=== PATIENT | male | born 1990 | race Caucasian/White ===

== ENCOUNTER 2022-06-12 08:12 | Outpatient (CLI) | payer OTHER, SELFPAY ==
[2022-06-12 13:43] LABS: Basophils Absolute Auto 0.02 K/uL (0.00-0.30); Basophils Percent Auto 0.4 % (0.0-3.0); Eosinophils Absolute Auto 0.18 K/uL (0.00-0.50); Eosinophils Percent Auto 3.4 % (0.0-7.0); Hematocrit 34.4 % (37.0-53.0); Hemoglobin* 10.2 gm/dL (13.5-17.5); Immature Granulocytes Abs Auto 0.01 K/uL (0.00-0.30); Immature Granulocytes Pct Auto 0.2 %; Lymphocytes Absolute Auto 1.51 K/uL (0.90-2.90); Lymphocytes Percent Auto 28.8 % (20-44); Mean Corpuscular HGB Conc 30 gm/dL (32-36); Mean Corpuscular Hemoglobin 21 pg (26-34); Mean Corpuscular Volume 70 fL (80-100); Monocytes Percent Auto 8.2 % (0.0-11.0); Partial Thromboplastin Time* 33 Seconds (23-33); Platelet Count* 163 K/uL (140-440); RDW Coefficient of Variation % 14.7 % (11.5-15.5); Red Blood Count 4.91 m/uL (4.30-5.90); White Blood Count* 5.25 K/uL (4.50-11.00)
[2022-06-12 14:02] LABS: Iron* 19 ug/dL (49-181)
[2022-06-12 14:12] LABS: Percent Iron Saturation 4 % (20-50); Total Iron Binding Capacity 448 ug/dL (261-462)
[2022-06-12 14:27] LABS: Slide Review Reflex Yes
[2022-06-12 14:28] LABS: Slide Review Acceptable Review (Acceptable)
== END 2022-06-12 08:13 | disposition home or self-care (01) ==
PROVIDERS: PCP Nurse Practitioner Family; Visit Provider Nurse Practitioner Family
DX: Z00.00 Encounter for general adult medical examination without abnormal findings (principal); Z13.0 Encounter for screening for diseases of the blood and blood-forming organs and certain disorders involving the immune mechanism; R58 Hemorrhage, not elsewhere classified
CPT/HCPCS: 83540; 83550; 85025; 85730

== ENCOUNTER 2022-07-09 09:58 | Outpatient (CLI) | payer OTHER, SELFPAY | END 2022-07-09 09:59 | disposition home or self-care (01) | PROVIDERS: PCP Nurse Practitioner Family; Visit Provider Otolaryngology | DX: Z00.00 Encounter for general adult medical examination without abnormal findings (principal); R04.0 Epistaxis; D50.9 Iron deficiency anemia, unspecified | CPT/HCPCS: 85610; 85730 ==

== ENCOUNTER 2022-07-16 13:53 | Outpatient (CLI) | payer OTHER, SELFPAY ==
--- NOTE | 2022-07-16 14:00 | CRLHL7_ITS ---
For Patients: As a result of the Century Cures Act, medical imaging exams and procedure reports are released immediately into your electronic medical record. You may view this report before your referring provider. If you have questions, please contact your health care provider. INDICATION: Epistaxis. TECHNIQUE: CTA head with contrast bolus tracking and 3D MIP reconstruction. FINDINGS: There is normal opacification of the intracranial vasculature. There is no large vessel occlusion. No aneurysm is identified. IMPRESSION: Unremarkable head CTA. Please note that all CT scans at this facility use dose modulation, iterative reconstruction, and/or weight-based dosing when appropriate to reduce radiation dose to as low as reasonably achievable. Dictated by Mauro Barrera MD @ 07/16/2022 4:42:46 PM (Electronically Signed)
--- NOTE | 2022-07-16 14:30 | CRLHL7_ITS ---
For Patients: As a result of the Century Cures Act, medical imaging exams and procedure reports are released immediately into your electronic medical record. You may view this report before your referring provider. If you have questions, please contact your health care provider. INDICATION: Epistaxis. TECHNIQUE: CTA neck with contrast bolus tracking and 3D MIP reconstruction. FINDINGS: There is no significant carotid or vertebral artery stenosis or dissection. The soft tissues of the neck are within normal limits. The cervical spine is in normal alignment. IMPRESSION: Unremarkable neck CTA. Please note that all CT scans at this facility use dose modulation, iterative reconstruction, and/or weight-based dosing when appropriate to reduce radiation dose to as low as reasonably achievable. Dictated by Mauro Barrera MD @ 07/16/2022 4:44:53 PM (Electronically Signed)
== END 2022-07-16 13:54 | disposition home or self-care (01) ==
LOC: CT 13:53
PROVIDERS: PCP Nurse Practitioner Family; Visit Provider Otolaryngology
DX: R04.0 Epistaxis (principal)
CPT/HCPCS: 70496; 70498; Q9967

== ENCOUNTER 2022-10-30 13:00 | Outpatient (RCR) | payer OTHER, SELFPAY ==
[2022-08-26 11:08] LABS: Basophils Absolute Auto 0.01 K/uL (0.00-0.30); Basophils Percent Auto 0.2 % (0.0-3.0); Eosinophils Absolute Auto 0.21 K/uL (0.00-0.50); Eosinophils Percent Auto 3.8 % (0.0-7.0); Hematocrit 36.3 % (37.0-53.0); Hemoglobin* 11.3 gm/dL (13.5-17.5); Immature Granulocytes Abs Auto 0.01 K/uL (0.00-0.30); Immature Granulocytes Pct Auto 0.2 %; Lymphocytes Absolute Auto 1.82 K/uL (0.90-2.90); Lymphocytes Percent Auto 33.2 % (20-44); Mean Corpuscular HGB Conc 31 gm/dL (32-36); Mean Corpuscular Hemoglobin 21 pg (26-34); Mean Corpuscular Volume 68 fL (80-100); Monocytes Percent Auto 9.5 % (0.0-11.0); Neutrophils Absolute Auto 2.91 K/uL (1.7-7.0); Neutrophils Percent Auto 53.1 % (42.0-72.0); Platelet Count* 195 K/uL (140-440); RDW Coefficient of Variation % 17.9 % (11.5-15.5); Red Blood Count 5.34 m/uL (4.30-5.90); White Blood Count* 5.48 K/uL (4.50-11.00)
[2022-08-26 11:39] LABS: Slide Review Reflex No
[2022-08-26 11:43] LABS: Iron* 26 ug/dL (49-181)
[2022-08-26 11:52] LABS: Percent Iron Saturation 6 % (20-50); Total Iron Binding Capacity 418 ug/dL (261-462)
[2022-08-26 12:10] LABS: INR 1.04 (0.91-1.10); Prothrombin Time 14.2 Seconds
[2022-08-26 12:11] LABS: Partial Thromboplastin Time* 34 Seconds (23-33)
[2022-08-26 12:16] LABS: Ferritin* 5.3 ng/mL (17.9-464.0)
[2022-08-29 04:36] LABS: von WillebrandFactorAntigen 29 % (52-214); vonWillebrandFactorActivityRCF 19 % (51-215)
--- NOTE | 2022-08-29 13:29 | URNOTE ---
Request received for authorization for Ferumoxytol (Feraheme) ([id number]). Prior authorization is not required [facility] per Rep Jessica Ref#[id number].
[2022-09-10 13:51] VITALS: BP 142/84; PULSE 75; RESP 16; TEMP 36.3; O2SAT 98
[2022-09-10] MEDS: ferumoxytoL 510 MG in 0.9 % SODIUM CHLORIDE 250 ml 250 ML 1080 MG IVPB (14:14)
[2022-09-16 14:10] VITALS: BP 133/77; PULSE 86; RESP 16; TEMP 35.7; O2SAT 96
[2022-09-16] MEDS: ferumoxytoL 510 MG in 0.9 % SODIUM CHLORIDE 250 ml 250 ML 1068 MG IVPB (14:10)
--- NOTE | 2022-09-30 11:57 | ONC.NURNOTE ---
Addendum entered by Adrienne Fischer RN 10/07/22 10:55: New Rx for tranexamic acid submitted by Dr Humberto Murphy drug was contacted and so was Levi Original Note: [place] required for [facility] dept [phone] was contacted feature writer informed that Tranexamic Acid is required to try prior to [facility] or may submit request by phone with information as to why patient is not a candidate for this medication feature writer to review with Dr Paul
[2022-10-09 11:53] LABS: Basophils Absolute Auto 0.04 K/uL (0.00-0.30); Basophils Percent Auto 0.6 % (0.0-3.0); Eosinophils Absolute Auto 0.17 K/uL (0.00-0.50); Eosinophils Percent Auto 2.6 % (0.0-7.0); Hemoglobin* 14.1 gm/dL (13.5-17.5); Immature Granulocytes Abs Auto 0.01 K/uL (0.00-0.30); Immature Granulocytes Pct Auto 0.2 %; Lymphocytes Absolute Auto 1.77 K/uL (0.90-2.90); Lymphocytes Percent Auto 27.4 % (20-44); Mean Corpuscular HGB Conc 33 gm/dL (32-36); Mean Corpuscular Hemoglobin 25 pg (26-34); Mean Corpuscular Volume 75 fL (80-100); Neutrophils Absolute Auto 4.01 K/uL (1.7-7.0); Neutrophils Percent Auto 62.2 % (42.0-72.0); Platelet Count* 176 K/uL (140-440); RDW Coefficient of Variation % 20.3 % (11.5-15.5); Red Blood Count 5.71 m/uL (4.30-5.90); White Blood Count* 6.45 K/uL (4.50-11.00)
[2022-10-09 11:57] LABS: Slide Review Reflex No
[2022-10-09 14:41] LABS: Ferritin* 18.8 ng/mL (17.9-464.0)
--- NOTE | 2022-10-10 12:37 | URNOTE ---
Request received for authorization for Ferumoxytol (Feraheme) ([id number]).?Prior authorization is not required?by [facility] per Rep Summer B. Ref#[id number].
[2022-10-24 08:36] VITALS: BP 130/84; PULSE 66; RESP 18; TEMP 36.6; O2SAT 99
[2022-10-24] MEDS: ferumoxytoL 510 MG in 0.9 % SODIUM CHLORIDE 250 ml 250 ML 1068 MG IVPB (09:08)
[2022-10-30] MEDS: ferumoxytoL 510 MG in 0.9 % SODIUM CHLORIDE 250 ml 250 ML 1068 MG IVPB (13:23)
[2022-10-30 13:45] VITALS: BP 131/82; PULSE 64; RESP 16; TEMP 36.8; O2SAT 97
--- NOTE | 2023-02-06 10:25 | ONC.NURNOTE ---
Phone message left on voicemail to set up follow up with Dr Paul and lab
== END 2023-02-22 23:59 | disposition home or self-care (01) ==
LOC: CCIC 13:00
PROVIDERS: PCP Nurse Practitioner Family; Referring Provider Nurse Practitioner Family; Visit Provider Internal Medicine Hematology & Oncology
DX: D68.00 Von Willebrand disease, unspecified (principal)
CPT/HCPCS: 36415; 82728; 83540; 83550; 85025; 85240; 85245; 85246; 85610; 85730; 96365; 96374; 99204; 99205; 99212; 99214; 99215; J7050; Q0138

== ENCOUNTER 2023-12-24 17:47 | Emergency (ER) | payer OTHER, SELFPAY ==
[2023-12-24 18:22] VITALS: BP 145/92; PULSE 71; RESP 16; TEMP 36.9; O2SAT 98; BMI 26.5
--- NOTE | 2023-12-24 18:42 | CRLHL7_ITS ---
For Patients: As a result of the Century Cures Act, medical imaging exams and procedure reports are released immediately into your electronic medical record. You may view this report before your referring provider. If you have questions, please contact your health care provider. INDICATION: Right lower quadrant pain.. TECHNIQUE: CT abdomen and pelvis acquired with 91 cc of Isovue 370 IV contrast. COMPARISON: None. FINDINGS: Lower chest: Unremarkable. Liver: Unremarkable. Normal in size and attenuation. No suspicious masses. Gallbladder and bile ducts: Unremarkable. No stones or inflammation. No biliary dilatation. Pancreas: Unremarkable. No mass or inflammation. Spleen: Unremarkable. Normal in size. No masses. Adrenal glands: Unremarkable. No nodules. Kidneys: Unremarkable. No suspicious masses, stones, or hydronephrosis. GI tract: Unremarkable. Normal in caliber. No sign of mass or inflammation. Normal appendix. Vasculature: Abdominal aorta is normal in caliber. Mesenteric arteries are patent. Lymph nodes: No lymphadenopathy. Peritoneum/Abdominal Wall: Unremarkable. No free air or significant free fluid. Pelvis: Unremarkable. Bones: Unremarkable for age. IMPRESSION: Unremarkable CT of the abdomen and pelvis. No acute findings. Normal appendix. No urolith or evidence of obstructive uropathy. Please note that all CT scans at this facility use dose modulation, iterative reconstruction, and/or weight-based dosing when appropriate to reduce radiation dose to as low as reasonably achievable. Dictated by Justice Dennison MD @ 12/24/2023 7:49:00 PM (Electronically Signed)
--- OUTSIDE RECORDS SUMMARY | 2023-12-24 19:06 | XMS_ITS ---
Author Organization [facility] Address [address] [place] [address] Care Team Providers Care Acoustical Logging Engineer Name Role Phone Unavailable Unavailable Unavailable Surgery Details Not on file Complications Check Surgery Details section. Procedure Estimated Blood Loss Check Surgery Details section. Procedure Findings Check Surgery Details section. Procedure Specimens Taken Check Surgery Details section.
--- OUTSIDE RECORDS SUMMARY | 2023-12-24 19:06 | XMS_ITS | Clinical Summary ---
[facility] Organization [facility] Address [address] [address] Care Team Providers Care Superintendent Container Terminal Name Role Phone Found, No Pcp MD Primary Care Provider Unavailab le Source Comments You are receiving this document as you are listed as the primary care provider,follow-up provider, or the patient has been referred to you for consultation.This is in compliance with the Medicare andOhio[facility] Hospitalcaid EHR Incentive Program,which states Providers who transition their patient to another setting of careor provider of care or refers their patient to another provider of care shouldprovide summary care record for each transition of care or referral. [facility] Allerg[facility] No known active allergies Medications Medication Sig Dispensed Refills Start Date End Date Status ondansetron (ZOFRAN-ODT) 4 MG disintegrating tablet Take 1 Tablet by mouth every 8 hours as needed for Nausea. 5 Tablet 04/03/2021 Active HYDROcodone-acetaminoph en (NORCO) 5-325 MG tablet Take 1 Tablet by mouth every 6 hours as needed. 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 Complex tear of medial menis cus of left knee as current injury 02/09/2021 History of arthroscopy of left knee 01/20/2021 Chronic pain of left knee 01/20/2021 Family History Medical History Relation Name Comments Heart Disease Father Diabetes Brother Cancer Maternal Aunt Cancer Maternal Uncle Diabetes Paternal Grandmother Anesthesia Reaction Negative Family History Broken Bones Negative Family History Clotting Disorder Negative Family History Osteoporosis Negative Family History Rheumatologic Disease Negative Family History Relation Name Status Comments Father Brother Maternal Aunt Maternal Uncle Paternal Grandmother Social History Tobacco Use Types Packs/Day Years Used Date Smoking Tobacco: Never Smokeless Tobacco: Never Alcohol Use Standard Drinks/Week Comments Yes 0 (1 standard drink = 0.6 oz pur e alcohol) occasionl Sex and Gender Information Value Date Recorded Sex Assigned at Male 01/16/2021 7:19 PM CDT Gender Identity Male 01/16/2021 7:19 PM CDT Sexual Orientation Not on file Last Filed Vital Signs Vital Sign Reading Time Taken Comments Blood Pressure 124/80 04/03/2021 1:45 PM SALESPERSON ART OBJECTS Pulse 85 04/03/2021 1:45 PM SALESPERSON ART OBJECTS Temperature 36.8 ??C (98.3 ??F) 04/03/2021 1:45 PM CS T Respiratory Rate 17 04/03/2021 1:45 PM SALESPERSON ART OBJECTS Oxygen Saturation 98% 04/03/2021 1:45 PM SALESPERSON ART OBJECTS Inhaled Oxygen Concentration - - Weight 86.2 kg (190 lb) 04/03/2021 9:41 AM SALESPERSON ART OBJECTS Height 175.3 cm (5' 9) 04/03/2021 9:41 AM SALESPERSON ART OBJECTS Body Mass Index 28.06 04/03/2021 9:41 AM SALESPERSON ART OBJECTS Plan of Treatment Health Maintenance Due Date Last Done Comments Hep C Screening (Preventive Services) 1988 HIV Screening (Preventive Services) 2004 Adult Preventive Visit 2006 HepB (1) 10/24/2007 COVID-19 Vaccine ( season) 2023 DTaP/Tdap/Td (3 - Tdap) 02/10/2023 02/10/2013, 02/20 Cholesterol 10/24/2023 Influenza (#1) 2024 02/20/2021, 1111/2019, 02/21/2019, Additional history exists Zoster/Shingles (1 of 2) 2038 Hib Aged Out 07/19/2001 No longer eligi ble based on patient's age to complete this topic HPV Vaccine Aged Out No longer eligi ble based on patient's age to complete this topic HepA Aged Out No longer eligi ble based on patient's age to complete this topic IPV (Polio) Aged Out No longer eligi ble based on patient's age to complete this topic MCV4 Aged Out No longer eligi ble based on patient's age to complete this topic Pneumococcal Aged Out No longer eligi ble based on patient's age to complete this topic Care Teams Superintendent Container Terminal Relationship Specialty Start Date End Date Found, No Pcp[address] [place] [address] PCP - General 01/29/22
--- OUTSIDE RECORDS SUMMARY | 2023-12-24 19:06 | XMS_ITS | Encounter Summary ---
Author Organization [facility] Address [address] [address] Phone Care Team Providers Care Service Center Representative Name Role Phone Unavailable Primary Care Provider Unavailabl e Reason for Visit * Reason Comments Puncture Wound Encounter Details Date Type Department Care Team (Late st Contact Info) Description 11/05/2023 3:45 PM CDT - 11/05/2023 4:09 PM CDT Emergency [facility] Emergency Department [address] [place] [address] [id number] Johnathon Reyes MD [address] [place] [id number] Cellulitis of right lower extremity (Primary Dx) Discharge Disposition: Home and/or Self Care Social History Tobacco Use Types Packs/Day Years Used Date Smoking Tobacco: Never Assessed EH IP Custom IPV Answer Date Recorded Do you feel UNSAFE in any of your personal relationships with your family members or any other acquaintances? Deferred 2023 Sex and Gender Information Value Date Recorded Sex Assigned at Not on file Gender Identity Not on file Sexual Orientation Not on file Job Start Date Occupation Industry Not on file Not on file Not on file documented as of this encounter Last Filed Vital Signs Vital Sign Reading Time Taken Comments Blood Pressure 143/93 11/05/2023 3:40 PM CDT Pulse 81 11/05/2023 3:40 PM CDT Temperature 36.7 ??C (98 ??F) 11/05/2023 3:40 PM CDT Respiratory Rate 18 11/05/2023 3:40 PM CDT Oxygen Saturation 97% 11/05/2023 3:40 PM CDT Inhaled Oxygen Concentration - - Weight 88.5 kg (195 lb) 11/05/2023 3:40 PM CDT Height 177.8 cm (5' 10) 11/05/2023 3:40 PM CDT Body Mass Index 27.98 11/05/2023 3:40 PM CDT documented in this encounter Functional Status Functional Status Response Date of Assess ment Patient's Vision Adequate to Safely Complete Daily Activities Yes 11/05/2023 Patient's Memory Adequate to Safely Complete Daily Activities Yes 11/05/2023 Cognitive Status Response Date of Assessm ent Patient's Judgment Adequate to Safely Complete Daily Activities Yes 11/05/2023 documented as of this encounter Discharge Instructions * Discharge Instructions* Johnathon Reyes MD - 11/05/2023 4:04 PM CDT Clindamycin as directed. Tylenol and ibuprofen as needed for comfort. Follow-up closely if your symptoms are worsening such as fevers, chills or significant worsening redness. documented in this encounter Medications at Time of Discharge Medication Sig Dispensed Refills Start Date End Date clindamycin (Cleocin) 300 MG capsuleIndications:Inf ection Take 1 Capsule by mouth three times a day for 10 days. Indications: Infection 40 Capsule 11/05/2023 11/15/2023 documented as of this encounter Ordered Prescriptions Prescription Sig Dispensed Refills Start Date End Da te clindamycin (Cleocin) 300 MG capsuleIndications:Infe ction Take 1 Capsule by mouth three times a day for 10 days. Indications: Infection 40 Capsule 11/05/2023 11/15/2023 documented in this encounter Discharge Disposition Disposition Code Departure Means Destination Home and/or Self Penitentiary documented in this encounter ED Notes * Johnathon Reyes MD - 11/05/2023 4:06 PM CDT Patient: Levi Lennon Means of Arrival: Car Chief Complaint: Puncture Wound History of Present Illness: HPI The patient is a 33-year-old male who presents to the emergency department today with a chief complaint of a puncture wound. The patient reports that over a week ago he believes that he was puncturedby a nail over his right thigh. He is now started to notice some increasing redness and swelling. He has not had any fevers, chills. He is not having any other rashes or skin discolorations. He is otherwise typically in good health. Review of Systems Please see HPI No Known Allergies Prior to Admission Medication List Med List Status: ED Triage Only Set By: Brandon Bruner RN at 11/05/2023 3:40 PM No Medications Reported Past Medical History: None Social History: Exam: Initial Vitals Most Recent Vitals Temp: 98 ??F (36.7 ??C) (11/05/23 1540) Temp: 98 ??F (36.7 ??C) (11/05/23 1540) Pulse: 81 (11/05/23 1540) Pulse: 81 (11/05/23 1540) Resp: 18 (11/05/23 1540) Resp: 18 (11/05/23 1540) BP: (!) 143/93 (11/05/23 1540) BP: (!) 143/93 (11/05/23 1540) SpO2: 97 % (11/05/23 1540) SpO2: 97 % (11/05/23 1540) Weight: 88.5 kg (195 lb) (11/05/23 1540) Physical Exam: Physical Exam HENT: Head: Normocephalic. Skin: Comments: Inspection of the patient's right thigh reveals no reveals an area of erythema approximately 3 cm in diameter with central eschar. Neurological: General: No focal deficit present. Mental Status: He is alert and oriented to person, place, and time. Psychiatric: Mood and Affect: Mood normal. Emergency Department Course: The patient is a 33-year-old male who presents to the emergency department today with a chief complaint of redness of his right lower extremity. The patient's exam is consistent with cellulitis. I have recommended a course of clindamycin. I will have him complete a 10-day course, 300 mg 3 times daily. Follow-up if not improving following thisand sooner if symptoms worsening at any point. He was comfortable with the plan. Medications - No data to display Procedures: Procedures Medical Decision Making Assessment: Cellulitis of right lower extremity (Primary) Plan: Discharge Discharge Prescriptions Medication Sig Dispense Start Date End Date Auth. Provider clindamycin (Cleocin) 300 MG capsule Take 1 Capsule by mouth three times a day for 10 days. Indications: Infection 40 Capsule 11/05/2023 11/15/2023 Johnathon Reyes MD Disposition: ED Disposition ED Disposition Discharge Condition Stable Comment [facility] thanks you for allowing us to assist you with your healthcare needs. This document contains patient education materials and information regarding your injury/illness. *If you need copies of your x-rays for a f ollow up appointment please call [phone] to arrangefor supervisor picking crew. If you had an IV in place during your stay, please continue to monitor the site for the next 48 hours. Report any redness, swelling, drainage, or fever to your primary care phys ician. Discharge Instructions Clindamycin as directed. Tylenol and ibuprofen as needed for comfort. Follow-up closely if your symptoms are worsening such as fevers, chills or significant worsening redness. ExitCare Instructions None Johnathon Reyes MD 11/05/23 [id number] * Chelle Cano RN - 11/05/2023 3:49 PM CDT Pt presents to ER today for increased redness & pain around a puncture wound he got last week pt thinks from a nail at work. * Brandon Bruner RN - 11/05/2023 3:39 PM CDT Pt presents w/ concerning puncture wound to RLE, maybe from a nail at work. documented in this encounter Plan of Treatment Not on file documented as of this encounter Visit Diagnoses Diagnosis Cellulitis of right lower extremity- Primary Cellulitis and abscess of leg, except foot documented in this encounter
--- OUTSIDE RECORDS SUMMARY | 2023-12-24 19:06 | XMS_ITS | Clinical Summary ---
Author Organization [facility] [employer] [facility] Address [address] [address] Phone Care Team Providers Care Sorter Pricer Name Role Phone Unavailable Primary Care Provider Unavailabl e Allergies No known active allergies Medications No known medications Encounters Date Type Department Care Team Description 11/05/2023 3:45 PM CDT - 11/05/2023 4:09 PM CDT Emergency [facility] Emergency Department [address] [place] [address] Johnathon Reyes MD Cellulitis of right lower extremity (Primary Dx) Discharge Disposition: Home and/or Self Care 11/05/2023 Travel from Last 3 Months Social History Tobacco Use Types Packs/Day Years [...] file Not on file Not on file Last Filed Vital Signs [...] Mass Index 27.98 11/05/2023 3:40 PM CDT Plan of Treatment Not on file
--- OUTSIDE RECORDS SUMMARY | 2023-12-24 19:06 | XMS_ITS | Clinical Summary ---
Author Organization [facility] Address [address] [place] [address] Care Team Providers Care Personal Financial Representative Name Role Phone Elsewhere, Pcp Primary Care Provider Unavailabl e Source Comments Patient records contain information from all sites at [facility]. For routine questions regarding patient records, call [phone] during business hours, M-F 8:00 AM - 5:00 PM Central Time. Record requests for emergency care only can be directed to [phone] at any time.[facility] Allergies No known active allergies Medications Medication Sig Dispensed Refills Start Date End Date Status desmopressin acetate 1.5 mg/mL (0.15%) nasal spray Administer 0.1 mL (1 spray total) into each nostril as needed (To be used in case of bleeding). Second dose of DDAVP should NOT be given within 48 hours of the initial treatment without consulting a physician. Reduce your intake of fluids after taking this medication. Drink no more than six, 8-ounce glasses in the 24 hours after taking desmopressin. 1 mL 3 12/12/2022 Active tranexamic acid 100 mg/mL (10 %) nasal spray Administer 1-2 sprays into each nostril 3 (three) times a day as needed (nose bleed). 20 mL 1 01/12/2023 Active tranexamic acid (CYKLOKAPRON) 1,000 mg/10 mL (100 mg/mL) injection Administer 1-2 sprays into each nostril 3 (three) times a day as needed for nose bleed 20 mL 1 01/12/2023 Active tranexamic acid nasal kit Use as directed. 1 kit = 1-Monoject 12 mL canula, 1-30 mL bottle and 1 nasal spray tip 2 kit 1 01/12/2023 Active tranexamic acid (LYSTEDA) 650 mg tabletIndications:Vo n Willebrand Disease Unspecified (HCC) Take 2 tablets (1,300 mg total) by mouth 3 (three) times a day. 84 tablet 1 02/04/2023 Active Hospital, Clinic, or Other Facility Administered Medication Ordered Dose Route Frequency Start Date End Date Status tranexamic acid 100 mg/mL nasal spray 1 spray (CYKLOKAPRON)Indications:Blee ding Disorder (HCC),Epistaxis 1 spray nasal Once 01/12/2023 Active Active Problems Patient Care Coordination No te Formatting of this note migh t be different from the original. PATIENT SUMMARY: Type I von Willebrand disease CHRONIC DISEASE MANAGEMENT: Please contact the [facility] ([phone]) prior to any invasive procedure. ACTION PLAN: Please refer to Bleeding Disorder Action Plan for management of bleeding concerns. Problem Noted Date Diagnosed Date Epistaxis 01/12/2023 Bleeding Disorder 11/17/2022 Social History Tobacco Use Types Packs/Day Years Used Date Smoking Tobacco: Never Passive Smoke Exposure: Never Smokeless Tobacco: Never Tobacco Cessation:Counseling Given: No Alcohol Use Standard Drinks/Week Comments Yes 4 (1 standard drink = 0.6 oz pur e alcohol) Humiliation, Afraid, Rape, and Kick questionnair e Answer Date Recorded Within the last year, have y ou been afraid of your partner or ex-partner? No 10/30/2022 Within the last year, have y ou been humiliated or emotionally abused in other ways by your partner or ex-partner? No Within the last year, have y ou been kicked, hit, slapped, or otherwise physically hurt by your partner or ex-partner? No 10/30/2022 Within the last year, have y ou been raped or forced to have any kind of sexual activity by your partner or ex-partner? No 10/30/2022 Overall Financial Resource Strain (CARDIA) Answe r Date Recorded How hard is it for you to pa y for the very basics like food, housing, medical care, and heating? Not very hard 10/30/2022 Exercise Vital Sign Answer Date Recorde d On average, how many days pe r week do you engage in moderate to strenuous exercise (like a brisk walk)? 7 days 10/30/2022 On average, how many minutes do you engage in exercise at this level? 150+ min 10/30/2022 Hunger Vital Sign Answer Date Recorded Within the past 12 months, y ou worried that your food would run out before you got the money to buy more. Never true 10/31/19 23 Within the past 12 months, t he food you bought just didn't last and you didn't have money to get more. Never true 10/30/2022 PRAPARE - Transportation Answer Date Re corded In the past 12 months, has l ack of transportation kept you from medical appointments or from getting medications? No 10/03 In the past 12 months, has l ack of transportation kept you from meetings, work, or from getting things needed for daily living? No 10/30/2022 Nutrition Answer Date Recorded Nutrition: EVOO Fat Source Unknown 10/30 On average, how many serving s of fruits and vegetables do you eat per day (serving size is equal to 1 cup or approximately the size of a tennis ball)? 0-2 10/30/2022 Dental Answer Date Recorded Dental: Regular Dentist No 10/31/19 Employment Answer Date Recorded Employment status Employed and actively working without restrictions 10/30/2022 Housing Stability Answer Date Recorded What is your living situation today? I have a [facility] place to live 10/30/2022 Sex and Gender Information Value Date Recorded Sex Assigned at Male 10/30/2022 1:40 PM CDT Gender Identity Male 10/30/2022 1:40 PM CDT Sexual Orientation Straight 10/30/2022 1: 40 PM CDT Last Filed Vital Signs Vital Sign Reading Time Taken Comments Blood Pressure 132/81 02/28/2023 4:31 PM CDT Pulse 74 02/28/2023 4:31 PM CDT Temperature 36.6 ??C (97.9 ??F) 02/28/2023 4:31 PM CD T Respiratory Rate 18 02/28/2023 4:31 PM CDT Oxygen Saturation 97% 02/28/2023 3:00 PM CDT Inhaled Oxygen Concentration - - Weight 88.6 kg (195 lb 5.2 oz) 02/28/2023 11:54 AM CDT Height 177.8 cm (5' 10) 02/24/2023 10:02 AM CDT Body Mass Index 28.03 02/24/2023 10:02 AM CDT Plan of Treatment Health Maintenance Due Date Last Done Comments HIV Screening 1988 Hepatitis C Screening 1988 Lipid (Cholesterol) Screening 1988 COVID-19 Vaccine ( season) 2023 Depression Screening (Annual PHQ-2) 05/04/2023 Influenza Vaccine (#1) 2024 , 03/15/2022, 02/20/2021, Additional history exists DTaP,Tdap,and Td Vaccines (4 - Td or Tdap) 03/31/2033 03/31/2023, 02/10/2013, 02/20/2003 Hepatitis B Vaccines Completed 05/04/2001, 03/03/2001, 12/08/2000 HPV Vaccines Aged Out No longer eligi ble based on patient's age to complete this topic Pneumococcal vaccine (0-64 years) Aged Out No longer eligible based on patient's age to complete this topic Care Teams Personal Financial Representative Relationship Specialty Start Date End Date Elsewhere, Pcp PCP - General Director Of Media 03/17/20
--- OUTSIDE RECORDS SUMMARY | 2023-12-24 19:06 | XMS_ITS | Encounter Summary ---
Author Organization [facility] Address [address], [place] [address] Care Team Providers Care Composing Machine Operator/Tender Name Role Phone Found, No Pcp Primary Care Provider Unavailab le Encounter Details Date Type Department Care Team (Late st Contact Info) Description 05/29/2023 Notes/Orders [facility] [address] [place] [address] Iggy Rodriguez MD [address] [place] [id number] Social History Tobacco Use Types Packs/Day Years Used Date Smoking Tobacco: Never Smokeless Tobacco: Never Alcohol Use Standard Drinks/Week Comments Yes 0 (1 standard drink = 0.6 oz pur e alcohol) occasionl Sex and Gender Information Value Date Recorded Sex Assigned at Male 01/16/2021 7:19 PM CDT Gender Identity Male 01/16/2021 7:19 PM CDT Sexual Orientation Not on file documented as of this encounter Plan of Treatment Not on file documented as of this encounter Visit Diagnoses Not on filedocumented in this encounter Care Teams Composing Machine Operator/Tender Relationship Specialty Start Date End Date Found, No Pcp, [address] [place] [address] PCP - General 01/29/22 documented as of this encounter
--- OUTSIDE RECORDS SUMMARY | 2023-12-24 19:06 | XMS_ITS | Clinical Summary ---
Author Organization [employer] [facility] Address [place], [place] [address] Care Team Providers Care Antique Jewelry Repairer Name Role Phone Pcp, No Primary Care Provider Unavailabl e None Unavailable Unavailable Allergies No known active allergies Medications No known medications Active Problems No known active problems Social History Tobacco Use Types Packs/Day Years Used Date Smoking Tobacco: Never Smokeless Tobacco: Former Sex and Gender Information Value Date Recorded Sex Assigned at Not on file Gender Identity Not on file Sexual Orientation Not on file Obstetrics History Last Filed Vital Signs Vital Sign Reading Time Taken Comments Blood Pressure 130/84 10/01/2022 12:33 PM CDT Pulse 89 10/01/2022 12:33 PM CDT Temperature 37 ??C (98.6 ??F) 10/01/2022 12:33 PM CDT Respiratory Rate 19 10/01/2022 12:33 PM CDT Oxygen Saturation 97% 10/01/2022 12:33 PM CDT Inhaled Oxygen Concentration - - Weight 90.3 kg (199 lb) 10/01/2022 12:33 PM CDT Height - - Body Mass Index - - Plan of Treatment Health Maintenance Due Date Last Done Comments Tdap 10/24/1999 HIV for age 15-65 10/24/2003 BMI (ht and wt on same day) for age 18+ 2006 Hepatitis C screening for ag e 18-79 2006 Tetanus booster 2008 Depression screening for age 12+ 08/03/2019 08/02/2018, 07/29/2018, 07/29/2018 COVID-19 vaccine series ( season) 2023 Lipids for age 35-44 10/24/2023 Influenza for age 9-49 01/03/2024 Pneumococcal series for age 6-64 Aged Out No longer eligible b ased on patient's age to complete this topic Care Teams Antique Jewelry Repairer Relationship Specialty Start Date End Date Pcp, No . PCP - General 04/28/18 None . 04/28/18
--- OUTSIDE RECORDS SUMMARY | 2023-12-24 19:06 | XMS_ITS | Referral Summary ---
Author Organization [facility] Address [address] [place] [address] Care Team Providers Care Marketing Systems Manager Name Role Phone Elsewhere, Pcp Primary Care Provider Unavailabl e Source Comments Patient records contain information from all sites at [facility]. For routine questions regarding patient records, call [phone] during business hours, M-F 8:00 AM - 5:00 PM Central Time. Record requests for emergency care only can be directed to [phone] at any time.[facility] Allergies No known active allergies Medications Medication [...] disease CHRONIC DISEASE MANAGEMENT: Please contact the [facility] ([phone]) prior to any invasive procedure. ACTION PLAN: [...] your living situation today? I have a [facility] place to live 10/30/2022 Sex and [...] 02/24/2023 10:02 AM CDT Plan of Treatment Not on file Care Teams Marketing Systems Manager Relationship Specialty Start Date End Date Elsewhere, Pcp PCP - General Evp And Chief Operating Officer 03/17/20
--- OUTSIDE RECORDS SUMMARY | 2023-12-24 19:06 | XMS_ITS | Encounter Summary ---
Author Organization [facility] Address [address] [address] Phone Care Team Providers Care Regional Director Of Finance Name Role Phone Unavailable Primary Care Provider Unavailabl e Encounter Details Date Type Department Care Team (Latest Contact Info) Description 11/05/2023 Travel Social History Tobacco Use Types Packs/Day Years [...] on file documented as of this encounter Functional Status Functional Status Response Date of Assess ment Patient's Vision Adequate to Safely Complete Daily Activities Yes 11/05/2023 Patient's Memory Adequate to Safely Complete Daily Activities Yes 11/05/2023 Cognitive Status Response Date of Assessm ent Patient's Judgment Adequate to Safely Complete Daily Activities Yes 11/05/2023 documented as of this encounter Plan of Treatment Not on file documented as of this encounter Visit Diagnoses Not on filedocumented in this encounter
[2023-12-24 19:11] LABS: Basophils Absolute Auto 0.01 K/uL (0.00-0.30); Basophils Percent Auto 0.2 % (0.0-3.0); Eosinophils Absolute Auto 0.29 K/uL (0.00-0.50); Eosinophils Percent Auto 4.5 % (0.0-7.0); Hematocrit 44.1 % (37.0-53.0); Hemoglobin* 15.6 gm/dL (13.5-17.5); Immature Granulocytes Abs Auto 0.01 K/uL (0.00-0.30); Immature Granulocytes Pct Auto 0.2 %; Lymphocytes Absolute Auto 2.37 K/uL (0.90-2.90); Lymphocytes Percent Auto 36.6 % (20-44); Mean Corpuscular HGB Conc 35 gm/dL (32-36); Mean Corpuscular Hemoglobin 30 pg (26-34); Mean Corpuscular Volume 83 fL (80-100); Monocytes Percent Auto 7.9 % (0.0-11.0); Neutrophils Absolute Auto 3.29 K/uL (1.7-7.0); Neutrophils Percent Auto 50.6 % (42.0-72.0); Platelet Count* 140 K/uL (140-440); RDW Coefficient of Variation % 11.6 % (11.5-15.5); Red Blood Count 5.29 m/uL (4.30-5.90); White Blood Count* 6.48 K/uL (4.50-11.00)
[2023-12-24 19:16] LABS: Slide Review Reflex No
[2023-12-24 19:25] LABS: Chloride* 104 mmol/L (96-114)
[2023-12-24 19:26] LABS: Appearance Urine Clear (Clear); Bilirubin Urine Negative (Negative); Color Urine Yellow (Yellow); Glucose Urine Negative (Negative)
[2023-12-24 19:26] LABS: Albumin* 4.4 g/dL (3.3-5.0); Sodium* 139 mmol/L (135-149)
[2023-12-24 19:27] LABS: Bacteria Urine Few; Blood Urine Negative (Negative); Ketones Urine Negative (Negative); Leukocyte Esterase Urine 3+ (Negative); Nitrite Urine Negative (Negative); Protein Urine Negative (Negative); RBC Urine 0-2 (0-2); Urobilinogen Urine 0.2 (0.2-1.0); WBC Urine 0-2 (0-5)
[2023-12-24 19:29] LABS: Alanine Aminotransferase* 39 U/L (4-50); Alkaline Phosphatase* 54 U/L (40-150); Anion Gap 7 mEq/L (7-15); Aspartate Amino Transferase* 27 U/L (12-35); Bilirubin Direct* 0.3 mg/dL (0.0-0.5); Bilirubin Total* 0.9 mg/dL (0.1-1.5); Blood Urea Nitrogen* 18 mg/dL (5-24); Calcium* 9.2 mg/dL (8.4-10.6); Carbon Dioxide* 28 mmol/L (20-32); Est. Creatinine Clearance* 106.46; Estimated Glomerular Filt Rate 101 ml/min; Glucose* 93 mg/dL (60-115); Total Protein* 6.9 g/dL (6.0-8.3)
[2023-12-24 19:32] LABS: C Reactive Protein* < 0.5 mg/dL (0.5-1.0)
--- NOTE | 2023-12-24 20:00 | ED.GENADULT ---
HPI - General Adult General Date Seen: 12/24/23 Chief complaint: Abdominal Pain Stated complaint: Mid right abdominal pain 2 days Time Seen by Provider: 12/24/23 18:26 Source: patient and family Mode of arrival: ambulatory Limitations: no limitations History of Present Illness HPI narrative: Patient is a 33-year-old generally healthy young man here at the insistence of his for evaluation of right mid abdominal pain. He says this started yesterday afternoon and has been present ever since although it is not changed or worsened. He says he has not had much of an appetite for the past few weeks and he does not feel that this is dramatically different over the past couple of days. He is not sure why it has not felt like eating past few weeks, he has not thought much about it and has not had significant changes in his weight. He has a little intermittent nausea but no vomiting. He says he has had normal bowel movements, no diarrhea and bloody stools. No fevers. No urinary symptoms. No history of similar symptoms. His says that she had appendicitis 5 years ago and was worried that it might be his appendix. He denies prior abdominal surgery or other medical history aside from von Willebrand's disease. He does not smoke or drink. Related Data Home Medications ?Medication ?Instructions ?Recorded ?Confirmed ejvexaa-erageftbqhlig-vzweaekw 250 1 tab PO Q4-6H PRN 08/26/22 12/24/23 mg-250 mg-65 mg tablet (Excedrin Migraine) melatonin 3 mg capsule 3 mg PO QHS PRN 10/09/22 12/24/23 Allergies Allergy/AdvReac Type Severity Reaction Status Date / Time No Known Drug Allergies Allergy Verified 12/24/23 19:23 Review of Systems Status of ROS: Reports: 10 or more systems reviewed and unremarkable except as noted in History and below PFSH PFS Surgical History History of wisdom tooth extraction ?K08.409 - Partial loss of teeth, unspecified cause, unspecified class (ICD-10) History of knee surgery ?Z98.890 - Other specified postprocedural states (ICD-10) 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 Non-smoker. Alcohol, 2-3 per week. No illicit drugs. Smoking Status: Never smoker Exam Narrative: Exam Narrative: Vital signs as noted above. In general, an alert, well-appearing patient. Head: Normocephalic, atraumatic. Eyes: Pupils are equal reactive. Extraocular movements are full. Conjunctivae are normal. ENT: Mucous membranes are moist. Throat is normal. Neck: Supple without lymphadenopathy. Heart: Regular rate and rhythm. No murmur or rub. Lungs: Clear bilaterally. No increased work of breathing, crackles or wheezes. Abdomen: Soft and nondistended. He has some mild tenderness in the right mid to lower abdomen, just above McBurney's point. He does not have any rebound guarding or rigidity. Remainder the abdomen is nontender, negative Marsh's. Extremities: Well perfused. No edema. No calf tenderness. Pulses intact. Neurologic: Patient is alert and oriented to person and place. Speech is fluent. Face is symmetric. Moves all extremities equally. Affect: Normal. Skin: Warm and dry. Well perfused. Const: Vital Signs, click to edit/add: Vital Signs - 24 hr 12/24/23 18:22 Temperature 98.5 F Pulse Rate [Pulse Oximeter] 71 Respiratory Rate 16 Blood Pressure [Ri ght Upper Arm] 145/92 H Pulse Oximetry 98 Oxygen Delivery Me thod Room Air Documenting provider has reviewed patient's vital signs: yes Course Course ED Course: Patient presents with some fairly mild right-sided abdominal pain which has been present since yesterday, relatively benign exam. We discussed options of laboratory screening 1st verses proceeding directly to CT scan. Ultimately, due to 's prior history and experience with appendicitis as well as childcare issues we have opted to proceed with CT scan today. He did have labs drawn, these are notable for a white blood cell count of 6.5 with a normal diff, hemoglobin of 15.6, CRP of less than 0.5, normal LFTs and normal metabolic panel. UA notable for 0-2 red cells and 0-2 white cells. 3+ leuks were noted on the dip of uncertain significance given the absence of white blood cells and few bacteria. He went on to have CT scan of the abdomen which by my review did not show any inflammation or findings suggestive of appendicitis, no hydronephrosis or kidney stones seen. No gallstones seen. Final radiology read as follows:FINDINGS: Lower chest: Unremarkable. Liver: Unremarkable. Normal in size and attenuation. No suspicious masses. Gallbladder and bile ducts: Unremarkable. No stones or inflammation. No biliary dilatation. Pancreas: Unremarkable. No mass or inflammation. Spleen: Unremarkable. Normal in size. No masses. Adrenal glands: Unremarkable. No nodules. Kidneys: Unremarkable. No suspicious masses, stones, or hydronephrosis. GI tract: Unremarkable. Normal in caliber. No sign of mass or inflammation. Normal appendix. Vasculature: Abdominal aorta is normal in caliber. Mesenteric arteries are patent. Lymph nodes: No lymphadenopathy. Peritoneum/Abdominal Wall: Unremarkable. No free air or significant free fluid. Pelvis: Unremarkable. Bones: Unremarkable for age. IMPRESSION: Unremarkable CT of the abdomen and pelvis. No acute findings. Normal appendix. No urolith or evidence of obstructive uropathy. I have reviewed this with the patient and his family. Discussed that despite normal imaging if his pain is worsening or severe he has new symptoms such as fevers or vomiting I would want him to come back for re-evaluation. Otherwise, I think it is reasonable to use ibuprofen or Tylenol if needed over the next couple of days and see if symptoms resolve. If not recommend primary care follow-up next week for re-evaluation. Vital Signs Vital signs: Initial Vital Signs Temperature 98.5 F 12/24/23 18:22 Temperature Source Temporal Artery Scan 12/24/23 18:22 Pulse Rate 71 12/24/23 18:22 Respiratory Rate 16 12/24/23 18:22 Blood Pressure 145/92 H 12/24/23 18:22 Blood Pressure Mean 109 H 12/24/23 18:22 Blood Pressure Position Sitting 12/24/23 18:22 Pulse Oximetry 98 12/24/23 18:22 Oxygen Delivery Method Room Air 12/24/23 18:22 Vital Signs Temperature 98.5 F 12/24/23 18:22 Pulse Rate 71 12/24/23 18:22 Respiratory Rate 16 12/24/23 18:22 Blood Pressure 145/92 H 12/24/23 18:22 Pulse Oximetry 98 12/24/23 18:22 Oxygen Delivery Method Room Air 12/24/23 18:22 Temperature 98.5 F 12/24/23 18:22 Pulse Rate 71 12/24/23 18:22 Respiratory Rate 16 12/24/23 18:22 Blood Pressure 145/92 H 12/24/23 18:22 Pulse Oximetry 98 12/24/23 18:22 Oxygen Delivery Method Room Air 12/24/23 18:22 Medical Decision Making Lab Data Labs: Lab Results 12/24/23 12/24/23 12/24/23 Range/Units 18:30 18:45 18:55 WBC 6.48 (4.50-11.00) K/uL RBC 5.29 (4.30-5.90) m/uL Hgb 15.6 (13.5-17.5) gm/dL Hct 44.1 (37.0-53.0) % MCV 83 (80-100) fL MCH 30 (26-34) pg MCHC 35 (32-36) gm/dL RDW Coeff of Elder 11.6 (11.5-15.5) % Plt Count 140 (140-440) K/uL Neut % (Auto) 50.6 (42.0-72.0) % Lymph % (Auto) 36.6 (20-44) % [place] % (Auto) 7.9 (0.0-11.0) % Eos % (Auto) 4.5 (0.0-7.0) % Baso % (Auto) 0.2 (0.0-3.0) % Neut # (Auto) 3.29 (1.7-7.0) K/uL Lymph # (Auto) 2.37 (0.90-2.90) K/uL [place] # (Auto) 0.50 (0.00-0.90) K/UL Eos # (Auto) 0.29 (0.00-0.50) K/uL Baso # (Auto) 0.01 (0.00-0.30) K/uL Abs Immat Gran (auto) 0.01 (0.00-0.30) K/uL Imm/Tot Granulo (auto) 0.2 % Sodium 139 (135-149) mmol/L Potassium 4.0 (3.6-5.1) mmol/L Chloride 104 (96-114) mmol/L Carbon Dioxide 28 (20-32) mmol/L Anion Gap 7 (7-15) mEq/L BUN 18 (5-24) mg/dL Creatinine 1.0 (0.5-1.5) mg/dL Estimated Creat Clear 106.46 Estimated GFR 101 ml/min Glucose 93 (60-115) mg/dL Calcium 9.2 (8.4-10.6) mg/dL Total Bilirubin 0.9 (0.1-1.5) mg/dL Direct Bilirubin 0.3 (0.0-0.5) mg/dL AST 27 (12-35) U/L ALT 39 (4-50) U/L Alkaline Phosphatase 54 (40-150) U/L C-Reactive Protein < 0.5 L (0.5-1.0) mg/dL Total Protein 6.9 (6.0-8.3) g/dL Albumin 4.4 (3.3-5.0) g/dL Urine Color Cancelled Yellow Urine Appearance Cancelled Clear Urine pH Cancelled 7.0 Ur Specific [place] Cancelled 1.020 Urine Protein Cancelled Negative Urine Glucose (UA) Cancelled Negative Urine Ketones Cancelled Negative Urine Blood Cancelled Negative Urine Nitrite Cancelled Negative Urine Bilirubin Cancelled Negative Urine Urobilinogen Cancelled 0.2 Ur Leukocyte Esterase Cancelled 3+ A Urine RBC 0-2 (0-2) Urine WBC 0-2 (0-5) Urine WBC Clumps None (None) Ur Squamous Epith Cells None (None-Few) Urine Bacteria Few A (None) Discharge Plan Discharge Prescriptions: No Action Excedrin Migraine 250-250-65 mg tablet 1 tab PO Q4-6H PRN melatonin 3 mg capsule 3 mg PO QHS PRN Follow Up/Referrals: Any Maradiaga, INSIDE SALES ACCOUNT EXECUTIVE, ENERGY AUDIT ADVISOR [Primary Care Provider] -
== END 2023-12-24 20:16 | disposition home or self-care (01) ==
PROVIDERS: Emergency Provider Emergency Medicine; PCP Nurse Practitioner Family
DX: R10.9 Unspecified abdominal pain (principal)
CPT/HCPCS: 36415; 74177; 80048; 80076; 81001; 81003; 85025; 86140; 87086; 99284; 99285; Q9967

== ENCOUNTER 2024-01-15 11:10 | Outpatient (CLI) | payer OTHER, SELFPAY ==
--- OUTSIDE RECORDS SUMMARY | 2024-01-15 11:15 | XMS_ITS | Encounter Summary ---
Author Organization [facility] Address [address] [address] Phone Care Team Providers Care Plumbing Engineering Draftsperson Name Role Phone Unavailable Primary Care Provider [...]
--- OUTSIDE RECORDS SUMMARY | 2024-01-15 11:15 | XMS_ITS ---
Author Organization [facility] Address [address] [place] [address] Care Team Providers Care Purchase Analyst Name Role Phone Unavailable Unavailable Unavailable Surgery Details Not on file Complications Check Surgery Details section. Procedure Estimated Blood Loss Check Surgery Details section. Procedure Findings Check Surgery Details section. Procedure Specimens Taken Check Surgery Details section.
--- OUTSIDE RECORDS SUMMARY | 2024-01-15 11:15 | XMS_ITS | Referral Summary ---
Author Organization [facility] Address [address] [place] [address] Care Team Providers Care Project Administrative Assistant Name Role Phone Elsewhere, Pcp Primary Care Provider Unavailabl e Source Comments Patient records contain information from all sites at [facility]. For routine questions regarding patient records, call [phone] during business hours, M-F 8:00 AM - 5:00 PM Central Time. Record requests for emergency care only can be directed to [phone] at any time.[facility] Allergies No known active allergies Medications Medication [...] disease CHRONIC DISEASE MANAGEMENT: Please contact the [facility] ([phone]) prior to any invasive procedure. ACTION PLAN: [...] your living situation today? I have a [facility] place to live 10/30/2022 Sex and [...] of Treatment Not on file Care Teams Project Administrative Assistant Relationship Specialty Start Date End Date Elsewhere, Pcp PCP - General Meter Attendant 03/17/20
--- OUTSIDE RECORDS SUMMARY | 2024-01-15 11:15 | XMS_ITS | Clinical Summary ---
Author Organization [facility] Address [address] [place] [address] Care Team Providers Care Tester Printed Circuit Boards Name Role Phone Elsewhere, Pcp Primary Care Provider Unavailabl e Source Comments Patient records contain information from all sites at [facility]. For routine questions regarding patient records, call [phone] during business hours, M-F 8:00 AM - 5:00 PM Central Time. Record requests for emergency care only can be directed to [phone] at any time.[facility] Allergies No known active allergies Medications [...] disease CHRONIC DISEASE MANAGEMENT: Please contact the [facility] ([phone]) prior to any invasive procedure. ACTION PLAN: [...] your living situation today? I have a [facility] place to live 10/30/2022 Sex and [...] C Screening 1988 Lipid (Cholesterol) Screening 1988 Depression Screening (Annual PHQ-2) 05/04/2023 COVID-19 Vaccine ( season) 2024 Influenza Vaccine (#1) 2024 , 03/15/2022, 02/20/2021, [...] age to complete this topic Care Teams Tester Printed Circuit Boards Relationship Specialty Start Date End Date Elsewhere, Pcp PCP - General Security Officer 03/17/20
--- OUTSIDE RECORDS SUMMARY | 2024-01-15 11:15 | XMS_ITS | Clinical Summary ---
Author Organization [facility] [facility] Address [address] [address] Phone Care Team Providers Care Waste Salvager Name Role Phone Unavailable Primary Care Provider Unavailabl e Allergies No known active allergies Medications No known medications Encounters Date Type Department Care Team Description 11/05/2023 3:45 PM CDT - 11/05/2023 4:09 PM CDT Emergency [facility] Emergency Department [address] [place] [address] Johnathon Reyes MD Cellulitis of right lower [...]
--- OUTSIDE RECORDS SUMMARY | 2024-01-15 11:15 | XMS_ITS | Encounter Summary ---
Author Organization [facility] Address [address] [address] Phone Care Team Providers Care Technical Services Assistant Name Role Phone Unavailable Primary Care Provider Unavailabl e Reason for Visit * Reason Comments Puncture Wound Encounter Details Date Type Department Care Team (Late st Contact Info) Description 11/05/2023 3:45 PM CDT - 11/05/2023 4:09 PM CDT Emergency [facility] Emergency Department [address] [place] [id number] Johnathon Reyes MD [address] [place] [address] Cellulitis of right lower extremity (Primary Dx) [...] Code Departure Means Destination Home and/or Self Half-Way documented in this encounter ED Notes * [...] Disposition ED Disposition Discharge Condition Stable Comment [facility] thanks you for allowing us to assist you with your healthcare needs. This document contains patient education materials and information regarding your injury/illness. *If you need copies of your x-rays for a f ollow up appointment please call [phone] to arrangefor worm picker. If you had an IV in place [...] ExitCare Instructions None Johnathon Reyes MD 11/05/23 1651 * Chelle Cano RN - 11/05/2023 3:49 [...]
--- OUTSIDE RECORDS SUMMARY | 2024-01-15 11:16 | XMS_ITS | Clinical Summary ---
Author Organization [employer] [facility] [place], [place] [address] Care Team Providers Care Key Account Director Name Role Phone Pcp, No Primary Care [...] for age 12+ 08/03/2019 08/02/2018, 07/29/2018, 07/29/2018 Lipids for age 35-44 10/24/2023 COVID-19 vaccine series ( season) 2024 Influenza for age 9-49 01/03/2024 Pneumococcal series for age 6-64 Aged Out No longer eligible b ased on patient's age to complete this topic Care Teams Key Account Director Relationship Specialty Start Date End Date Pcp, No . PCP - General 04/28/18 None . 04/28/18
--- OUTSIDE RECORDS SUMMARY | 2024-01-15 11:16 | XMS_ITS | Clinical Summary ---
Author Organization [facility] Address [address], [place] [address] Care Team Providers Care Metal Washing Machine Operator Name Role Phone Found, No Pcp MD Primary Care Provider Unavailab le Source Comments You are receiving this document as you are listed as the primary care provider,follow-up provider, or the patient has been referred to you for consultation.This is in compliance with the Medicare andSt. [facility] Hospital[facility]id EHR Incentive Program,which states Providers who transition their patient to another setting of careor provider of care or refers their patient to another provider of care shouldprovide summary care record for each transition of care or referral. [facility] Allergies No known active allergies Medications Medication [...] Comments Blood Pressure 124/80 04/03/2021 1:45 PM ADVERTISING ACCOUNT EXECUTIVE Pulse 85 04/03/2021 1:45 PM ADVERTISING ACCOUNT EXECUTIVE Temperature 36.8 ??C (98.3 ??F) 04/03/2021 1:45 PM CS T Respiratory Rate 17 04/03/2021 1:45 PM ADVERTISING ACCOUNT EXECUTIVE Oxygen Saturation 98% 04/03/2021 1:45 PM ADVERTISING ACCOUNT EXECUTIVE Inhaled Oxygen Concentration - - Weight 86.2 kg (190 lb) 04/03/2021 9:41 AM ADVERTISING ACCOUNT EXECUTIVE Height 175.3 cm (5' 9) 04/03/2021 9:41 AM ADVERTISING ACCOUNT EXECUTIVE Body Mass Index 28.06 04/03/2021 9:41 AM ADVERTISING ACCOUNT EXECUTIVE Plan of Treatment Health Maintenance Due Date Last Done Comments Hep C Screening (Preventive Services) 1988 HIV Screening (Preventive Services) 2004 Adult Preventive Visit 2006 HepB (1) 10/24/2007 DTaP/Tdap/Td (3 - Tdap) 02/10/2023 02/10/2013, 02/20 Cholesterol 10/24/2023 COVID-19 Vaccine ( season) 2024 Influenza (#1) 2024 02/20/2021, 11/11/2019, 02/21/2019, Additional history exists Zoster/Shingles (1 of [...] age to complete this topic Care Teams Metal Washing Machine Operator Relationship Specialty Start Date End Date Found, No Pcp, [address] [facility] [place] [address] PCP - General 01/29/22
== END 2024-01-15 11:11 | disposition home or self-care (01) ==
PROVIDERS: PCP Nurse Practitioner Family; Visit Provider Nurse Practitioner Family
DX: R10.11 Right upper quadrant pain (principal)
CPT/HCPCS: 80053; 82150; 83690; 85025

== ENCOUNTER 2024-01-18 11:10 | Outpatient (CLI) | payer OTHER, SELFPAY ==
--- OUTSIDE RECORDS SUMMARY | 2024-01-18 08:19 | XMS_ITS | Encounter Summary ---
Author Organization [facility] Address [address] [address] Phone Care Team Providers Care Gunsmith Apprentice Name Role Phone Unavailable Primary Care Provider Unavailabl e Reason for Visit * Reason Comments Puncture Wound Encounter Details Date Type Department Care Team (Late st Contact Info) Description 11/05/2023 3:45 PM CDT - 11/05/2023 4:09 PM CDT Emergency [facility] Emergency Department [address] [place] [id number] Johnathon Reyes MD [address] [place] [address] Cellulitis of right lower extremity (Primary Dx) [...] Code Departure Means Destination Home and/or Self Snf documented in this encounter ED Notes * [...] Disposition ED Disposition Discharge Condition Stable Comment [facility] thanks you for allowing us to assist you with your healthcare needs. This document contains patient education materials and information regarding your injury/illness. *If you need copies of your x-rays for a f ollow up appointment please call [phone] to arrangefor pickle pumper. If you had an IV in place [...] ExitCare Instructions None Johnathon Reyes MD 11/05/23 7399 * Chelle Cano RN - 11/05/2023 3:49 [...]
--- OUTSIDE RECORDS SUMMARY | 2024-01-18 08:19 | XMS_ITS | Encounter Summary ---
Author Organization [facility] Address [address] [address] Phone Care Team Providers Care Vb Developer Name Role Phone Unavailable Primary Care Provider [...]
--- OUTSIDE RECORDS SUMMARY | 2024-01-18 08:19 | XMS_ITS | Clinical Summary ---
Author Organization [facility] Address [address] [address] Phone Care Team Providers Care Amphibian Crewmember Name Role Phone Unavailable Primary Care Provider Unavailabl e Allergies No known active allergies Medications No known medications Encounters Date Type Department Care Team Description 11/05/2023 3:45 PM CDT - 11/05/2023 4:09 PM CDT Emergency [facility] Emergency Department [address] [place] [address] Johnathon Reyes MD Cellulitis of right lower [...]
--- OUTSIDE RECORDS SUMMARY | 2024-01-18 08:20 | XMS_ITS | Referral Summary ---
Author Organization [facility] Address [address] [place] [address] Care Team Providers Care Plant Scientist Name Role Phone Elsewhere, Pcp Primary Care Provider Unavailabl e Source Comments Patient records contain information from all sites at [facility]. For routine questions regarding patient records, call [phone] during business hours, M-F 8:00 AM - 5:00 PM Central Time. Record requests for emergency care only can be directed to [phone] at any time.[facility] Allergies No known active allergies Medications Medication [...] disease CHRONIC DISEASE MANAGEMENT: Please contact the [facility] ([phone]) prior to any invasive procedure. ACTION PLAN: [...] your living situation today? I have a [facility] place to live 10/30/2022 Sex and [...] of Treatment Not on file Care Teams Plant Scientist Relationship Specialty Start Date End Date Elsewhere, Pcp PCP - General Trimmer Operator Three Knife 03/17/20
--- OUTSIDE RECORDS SUMMARY | 2024-01-18 08:20 | XMS_ITS | Clinical Summary ---
Author Organization [facility] [facility] Address [place], [place] [address] Care Team Providers Care Crop Farm Workers Name Role Phone Pcp, No Primary Care [...] age to complete this topic Care Teams Crop Farm Workers Relationship Specialty Start Date End Date Pcp, No . PCP - General 04/28/18 None . 04/28/18
--- OUTSIDE RECORDS SUMMARY | 2024-01-18 08:20 | XMS_ITS | Clinical Summary ---
Author Organization [facility] Address [address] [address] Care Team Providers Care Sales Representative Girls' Apparel Name Role Phone Found, No Pcp MD Primary Care Provider Unavailab le Source Comments You are receiving this document as you are listed as the primary care provider,follow-up provider, or the patient has been referred to you for consultation.This is in compliance with the Medicare andPark[facility] Healthcaid EHR Incentive Program,which states Providers who transition their patient to another setting of careor provider of care or refers their patient to another provider of care shouldprovide summary care record for each transition of care or referral. [facility] Allergies No known active allergies Medications Medication [...] Comments Blood Pressure 124/80 04/03/2021 1:45 PM LITERACY EDUCATION PROFESSOR Pulse 85 04/03/2021 1:45 PM LITERACY EDUCATION PROFESSOR Temperature 36.8 ??C (98.3 ??F) 04/03/2021 1:45 PM CS T Respiratory Rate 17 04/03/2021 1:45 PM LITERACY EDUCATION PROFESSOR Oxygen Saturation 98% 04/03/2021 1:45 PM LITERACY EDUCATION PROFESSOR Inhaled Oxygen Concentration - - Weight 86.2 kg (190 lb) 04/03/2021 9:41 AM LITERACY EDUCATION PROFESSOR Height 175.3 cm (5' 9) 04/03/2021 9:41 AM LITERACY EDUCATION PROFESSOR Body Mass Index 28.06 04/03/2021 9:41 AM LITERACY EDUCATION PROFESSOR Plan of Treatment Health Maintenance Due Date Last Done Comments Hep C Screening (Preventive Services) 1988 HIV Screening (Preventive Services) 2004 Adult Preventive Visit 2006 HepB (1) 10/24/2007 DTaP/Tdap/Td (3 - Tdap) 02/10/2023 02/10/2013, 02/20 Cholesterol 10/24/2023 COVID-19 Vaccine ( season) 2024 Influenza (#1) 2024 02/20/2021, 1111/2019, 02/21/2019, Additional [...] age to complete this topic Care Teams Sales Representative Girls' Apparel Relationship Specialty Start Date End Date Found, No Pcp, [address] [place] [address] PCP - General 01/29/22
--- OUTSIDE RECORDS SUMMARY | 2024-01-18 08:20 | XMS_ITS ---
Author Organization [facility] Address [address] [place] [address] Care Team Providers Care Medical Imaging Technologist Name Role Phone Unavailable Unavailable Unavailable Surgery Details Not on file Complications Check Surgery Details section. Procedure Estimated Blood Loss Check Surgery Details section. Procedure Findings Check Surgery Details section. Procedure Specimens Taken Check Surgery Details section.
--- OUTSIDE RECORDS SUMMARY | 2024-01-18 08:20 | XMS_ITS | Clinical Summary ---
Author Organization [facility] Address [address] [place] [address] Care Team Providers Care Bologna Maker Name Role Phone Elsewhere, Pcp Primary Care Provider Unavailabl e Source Comments Patient records contain information from all sites at [facility]. For routine questions regarding patient records, call [phone] during business hours, M-F 8:00 AM - 5:00 PM Central Time. Record requests for emergency care only can be directed to [phone] at any time.[facility] Allergies No known active allergies [...] disease CHRONIC DISEASE MANAGEMENT: Please contact the [facility] ([phone]) prior to any invasive procedure. ACTION PLAN: [...] your living situation today? I have a [facility] place to live 10/30/2022 Sex and Gender [...] age to complete this topic Care Teams Bologna Maker Relationship Specialty Start Date End Date Elsewhere, Pcp PCP - General Associate Programmer Analyst 03/17/20
== END 2024-01-18 11:11 | disposition home or self-care (01) ==
PROVIDERS: PCP Nurse Practitioner Family; Visit Provider Nurse Practitioner Family
DX: R10.11 Right upper quadrant pain (principal)
CPT/HCPCS: 87338

== ENCOUNTER 2024-02-04 11:46 | Outpatient (CLI) | payer OTHER, SELFPAY ==
--- OUTSIDE RECORDS SUMMARY | 2024-02-04 11:48 | XMS_ITS | Encounter Summary ---
Author Organization [facility] Address [address] [address] Phone Care Team Providers Care Train Inspector Name Role Phone Unavailable Primary Care Provider Unavailabl e Reason for Visit * Reason Comments Puncture Wound Encounter Details Date Type Department Care Team (Late st Contact Info) Description 11/05/2023 3:45 PM CDT - 11/05/2023 4:09 PM CDT Emergency [facility] Emergency Department [address] [place] [id number] Johnathon Reyes MD [address] [place] [address] Cellulitis of right lower extremity (Primary Dx) [...] Code Departure Means Destination Home and/or Self Halfway documented in this encounter ED Notes * [...] Disposition ED Disposition Discharge Condition Stable Comment [facility] thanks you for allowing us to assist you with your healthcare needs. This document contains patient education materials and information regarding your injury/illness. *If you need copies of your x-rays for a f ollow up appointment please call [phone] to arrangefor black pickler. If you had an IV in place [...] ExitCare Instructions None Johnathon Reyes MD 11/05/23 0596 * Chelle Cano RN - 11/05/2023 3:49 [...]
--- OUTSIDE RECORDS SUMMARY | 2024-02-04 11:48 | XMS_ITS | Clinical Summary ---
Author Organization [employer] [facility] Address [place], [place] [address] Care Team Providers Care Lead Ios Developer Name Role Phone Pcp, No Primary Care [...] age to complete this topic Care Teams Lead Ios Developer Relationship Specialty Start Date End Date Pcp, No . PCP - General 04/28/18 None . 04/28/18
--- OUTSIDE RECORDS SUMMARY | 2024-02-04 11:48 | XMS_ITS | Clinical Summary ---
Author Organization [facility] Address [address], [place] [address] Care Team Providers Care Lung Puller Name Role Phone Found, No Pcp MD Primary Care Provider Unavailab le Source Comments You are receiving this document as you are listed as the primary care provider,follow-up provider, or the patient has been referred to you for consultation.This is in compliance with the Medicare andProm[facility] Hospitalcaid EHR Incentive Program,which states Providers who transition their patient to another setting of careor provider of care or refers their patient to another provider of care shouldprovide summary care record for each transition of care or referral. [facility] Allergies No known active allergies Medications Medication [...] Comments Blood Pressure 124/80 04/03/2021 1:45 PM MATERIAL CLERK Pulse 85 04/03/2021 1:45 PM MATERIAL CLERK Temperature 36.8 ??C (98.3 ??F) 04/03/2021 1:45 PM CS T Respiratory Rate 17 04/03/2021 1:45 PM MATERIAL CLERK Oxygen Saturation 98% 04/03/2021 1:45 PM MATERIAL CLERK Inhaled Oxygen Concentration - - Weight 86.2 kg (190 lb) 04/03/2021 9:41 AM MATERIAL CLERK Height 175.3 cm (5' 9) 04/03/2021 9:41 AM MATERIAL CLERK Body Mass Index 28.06 04/03/2021 9:41 AM MATERIAL CLERK Plan of Treatment Health Maintenance Due Date [...] on patient's age to complete this topic RSV Aged Out No longer eligi ble based on patient's age to complete this topic MCV4 Aged Out No longer eligi ble based on patient's age to complete this topic Pneumococcal Aged Out No longer eligi ble based on patient's age to complete this topic Care Teams Lung Puller Relationship Specialty Start Date End Date Found, No Pcp, [address] [place] [address] PCP - General 01/29/22
--- OUTSIDE RECORDS SUMMARY | 2024-02-04 11:48 | XMS_ITS | Clinical Summary ---
Author Organization [facility] Address [address] [address] Phone Care Team Providers Care Parts Cataloger Name Role Phone Unavailable Primary Care Provider Unavailabl e Allergies No known active allergies Medications No known medications Encounters Date Type Department Care Team Description 11/05/2023 3:45 PM CDT - 11/05/2023 4:09 PM CDT Emergency [facility] Emergency Department [address] [place] [address] Johnathon Reyes MD Cellulitis of right lower [...]
--- OUTSIDE RECORDS SUMMARY | 2024-02-04 11:48 | XMS_ITS | Referral Summary ---
Author Organization [facility] Address [address] [place] [address] Care Team Providers Care Operations Welder Name Role Phone Elsewhere, Pcp Primary Care Provider Unavailabl e Source Comments Patient records contain information from all sites at [facility]. For routine questions regarding patient records, call [phone] during business hours, M-F 8:00 AM - 5:00 PM Central Time. Record requests for emergency care only can be directed to [phone] at any time.[facility] Allergies No known active allergies Medications Medication [...] disease CHRONIC DISEASE MANAGEMENT: Please contact the [facility] ([phone]) prior to any invasive procedure. ACTION PLAN: [...] your living situation today? I have a [facility] place to live 10/30/2022 Sex [...] of Treatment Not on file Care Teams Operations Welder Relationship Specialty Start Date End Date Elsewhere, Pcp PCP - General Treating Plant Operator 03/17/20
--- OUTSIDE RECORDS SUMMARY | 2024-02-04 11:48 | XMS_ITS | Clinical Summary ---
Author Organization [facility] Address [address] [place] [address] Care Team Providers Care Tap Dancer Name Role Phone Elsewhere, Pcp Primary Care Provider Unavailabl e Source Comments Patient records contain information from all sites at [facility]. For routine questions regarding patient records, call [phone] during business hours, M-F 8:00 AM - 5:00 PM Central Time. Record requests for emergency care only can be directed to [phone] at any time.[facility] Allergies No known active allergies Medications Medication [...] disease CHRONIC DISEASE MANAGEMENT: Please contact the [facility] ([phone]) prior to any invasive procedure. ACTION PLAN: [...] your living situation today? I have a [facility] place to live 10/30/2022 Sex and [...] age to complete this topic Care Teams Tap Dancer Relationship Specialty Start Date End Date Elsewhere, Pcp PCP - General Exploration Geologist 03/17/20
--- OUTSIDE RECORDS SUMMARY | 2024-02-04 11:48 | XMS_ITS ---
Author Organization [facility] Address [address] [place] [address] Care Team Providers Care Retail Banking Manager Name Role Phone Unavailable Unavailable Unavailable Surgery Details Not on file Complications Check Surgery Details section. Procedure Estimated Blood Loss Check Surgery Details section. Procedure Findings Check Surgery Details section. Procedure Specimens Taken Check Surgery Details section.
--- OUTSIDE RECORDS SUMMARY | 2024-02-04 11:48 | XMS_ITS | Encounter Summary ---
Author Organization [facility] Address [address] [address] Phone Care Team Providers Care All Terrain Vehicle Technician Name Role Phone Unavailable Primary Care Provider [...]
--- NOTE | 2024-02-04 12:00 | CRLHL7_ITS ---
For Patients: As a result of the Century Cures Act, medical imaging exams and procedure reports are released immediately into your electronic medical record. You may view this report before your referring provider. If you have questions, please contact your health care provider. Indication: Abdominal pain Technique: Nuclear medicine hepatobiliary scan with gallbladder ejection fraction after the intravenous administration of 5.3 millicuries technetium 99 M Mebrofenin and 1.7 micrograms of CCK. Comparison: None Findings: Normal hepatic extraction and excretion of the radiopharmaceutical with prompt appearance of the common bile duct followed by the gallbladder and small bowel. There is no enterogastric reflux. Visually minimal gallbladder contraction is identified. Calculated gallbladder ejection fraction is 14 percent. Impression: Gallbladder dysfunction Dictated by Wally Zhao MD @ 02/04/2024 4:45:43 PM (Electronically Signed)
== END 2024-02-04 11:47 | disposition home or self-care (01) ==
LOC: NM 11:46
PROVIDERS: PCP Nurse Practitioner Family; Visit Provider Nurse Practitioner Family
DX: R10.11 Right upper quadrant pain (principal); K82.8 Other specified diseases of gallbladder
CPT/HCPCS: 78227; A9537; J2805

== ENCOUNTER 2024-02-09 11:42 | Outpatient (CLI) | payer OTHER, SELFPAY ==
--- OUTSIDE RECORDS SUMMARY | 2024-02-09 12:09 | XMS_ITS | Referral Summary ---
Author Organization [facility] Address [address] [place] [address] Care Team Providers Care Health Commissioner Name Role Phone Elsewhere, Pcp Primary Care Provider Unavailabl e Source Comments Patient records contain information from all sites at [facility]. For routine questions regarding patient records, call [phone] during business hours, M-F 8:00 AM - 5:00 PM Central Time. Record requests for emergency care only can be directed to [phone] at any time.[facility] Allergies No known active allergies Medications Medication [...] disease CHRONIC DISEASE MANAGEMENT: Please contact the [facility] ([phone]) prior to any invasive procedure. ACTION PLAN: [...] your living situation today? I have a [facility] place to live 10/30/2022 Sex and [...] of Treatment Not on file Care Teams Health Commissioner Relationship Specialty Start Date End Date Elsewhere, Pcp PCP - General Shirt Cleaner 03/17/20
--- OUTSIDE RECORDS SUMMARY | 2024-02-09 12:09 | XMS_ITS | Clinical Summary ---
[facility] Organization [facility] Address [address], [place] [address] Care Team Providers Care Curber Name Role Phone Found, No Pcp MD Primary Care Provider Unavailab le Source Comments You are receiving this document as you are listed as the primary care provider,follow-up provider, or the patient has been referred to you for consultation.This is in compliance with the Medicare andReg[facility] Companycaid EHR Incentive Program,which states Providers who transition their patient to another setting of careor provider of care or refers their patient to another provider of care shouldprovide summary care record for each transition of care or referral. [facility] Allergies No known active allergies Medications Medication [...] Comments Blood Pressure 124/80 04/03/2021 1:45 PM GRIEVANCE AND APPEALS COORDINATOR Pulse 85 04/03/2021 1:45 PM GRIEVANCE AND APPEALS COORDINATOR Temperature 36.8 ??C (98.3 ??F) 04/03/2021 1:45 PM CS T Respiratory Rate 17 04/03/2021 1:45 PM GRIEVANCE AND APPEALS COORDINATOR Oxygen Saturation 98% 04/03/2021 1:45 PM GRIEVANCE AND APPEALS COORDINATOR Inhaled Oxygen Concentration - - Weight 86.2 kg (190 lb) 04/03/2021 9:41 AM GRIEVANCE AND APPEALS COORDINATOR Height 175.3 cm (5' 9) 04/03/2021 9:41 AM GRIEVANCE AND APPEALS COORDINATOR Body Mass Index 28.06 04/03/2021 9:41 AM GRIEVANCE AND APPEALS COORDINATOR Plan of Treatment Health Maintenance Due Date [...] age to complete this topic Care Teams Curber Relationship Specialty Start Date End Date Found, No Pcp, [address] [place] [address] PCP - General 01/29/22
--- OUTSIDE RECORDS SUMMARY | 2024-02-09 12:09 | XMS_ITS | Encounter Summary ---
Author Organization [facility] Address [address] [address] Phone Care Team Providers Care Right Of Way Worker Name Role Phone Unavailable Primary Care Provider Unavailabl e Reason for Visit * Reason Comments Puncture Wound Encounter Details Date Type Department Care Team (Late st Contact Info) Description 11/05/2023 3:45 PM CDT - 11/05/2023 4:09 PM CDT Emergency [facility] Emergency Department [address] [place] [id number] Johnathon Reyes MD [address] [place] [address] Cellulitis of right lower extremity (Primary Dx) [...] Code Departure Means Destination Home and/or Self Usp documented in this encounter ED Notes * [...] Disposition ED Disposition Discharge Condition Stable Comment [facility] thanks you for allowing us to assist you with your healthcare needs. This document contains patient education materials and information regarding your injury/illness. *If you need copies of your x-rays for a f ollow up appointment please call [phone] to arrangefor sweet pickled fruit maker. If you had an IV in place [...] ExitCare Instructions None Johnathon Reyes MD 11/05/23 6576 * Chelle Cano RN - 11/05/2023 3:49 [...]
--- OUTSIDE RECORDS SUMMARY | 2024-02-09 12:09 | XMS_ITS | Clinical Summary ---
Author Organization [employer] [facility] Address [place], [place] [address] Care Team Providers Care Clay Preparation Supervisor Name Role Phone Pcp, No Primary Care [...] age to complete this topic Care Teams Clay Preparation Supervisor Relationship Specialty Start Date End Date Pcp, No . PCP - General 04/28/18 None . 04/28/18
--- OUTSIDE RECORDS SUMMARY | 2024-02-09 12:09 | XMS_ITS | Clinical Summary ---
Author Organization [facility] Address [address] [place] [address] Care Team Providers Care Acoustical Engineer Name Role Phone Elsewhere, Pcp Primary Care Provider Unavailabl e Source Comments Patient records contain information from all sites at [facility]. For routine questions regarding patient records, call [phone] during business hours, M-F 8:00 AM - 5:00 PM Central Time. Record requests for emergency care only can be directed to [phone] at any time.[facility] Allergies No known active allergies Medications [...] disease CHRONIC DISEASE MANAGEMENT: Please contact the [facility] ([phone]) prior to any invasive procedure. ACTION PLAN: [...] your living situation today? I have a [facility] place to live 10/30/2022 Sex and [...] age to complete this topic Care Teams Acoustical Engineer Relationship Specialty Start Date End Date Elsewhere, Pcp PCP - General Skilled Trades Teacher 03/17/20
--- OUTSIDE RECORDS SUMMARY | 2024-02-09 12:09 | XMS_ITS | Clinical Summary ---
Author Organization [facility] Address [address] [address] Phone Care Team Providers Care Hydraulic Assembler Name Role Phone Unavailable Primary Care Provider Unavailabl e Allergies No known active allergies Medications No known medications Social History Tobacco Use Types Packs/Day Years [...]
--- OUTSIDE RECORDS SUMMARY | 2024-02-09 12:09 | XMS_ITS ---
Author Organization [facility] Address [address] [place] [address] Care Team Providers Care Advertising Inserter Name Role Phone Unavailable Unavailable Unavailable Surgery Details Not on file Complications Check Surgery Details section. Procedure Estimated Blood Loss Check Surgery Details section. Procedure Findings Check Surgery Details section. Procedure Specimens Taken Check Surgery Details section.
--- OUTSIDE RECORDS SUMMARY | 2024-02-09 12:09 | XMS_ITS | Encounter Summary ---
Author Organization [facility] Address [address] [address] Phone Care Team Providers Care Graphic Design Intern Name Role Phone Unavailable Primary Care Provider [...]
== END 2024-02-09 11:43 | disposition home or self-care (01) ==
PROVIDERS: PCP Nurse Practitioner Family; Visit Provider Surgery
DX: R10.11 Right upper quadrant pain (principal); R74.8 Abnormal levels of other serum enzymes; D50.9 Iron deficiency anemia, unspecified; Z13.0 Encounter for screening for diseases of the blood and blood-forming organs and certain disorders involving the immune mechanism
CPT/HCPCS: 80076; 83690

== ENCOUNTER 2024-12-21 06:58 | Outpatient (CLI) | payer OTHER, SELFPAY ==
--- NOTE | 2024-12-21 07:15 | CRLHL7_ITS ---
For Patients: As a result of the Century Cures Act, medical imaging exams and procedure reports are released immediately into your electronic medical record. You may view this report before your referring provider. If you have questions, please contact your health care provider. EXAM: MRI OF THE LEFT SHOULDER WITHOUT CONTRAST CLINICAL INDICATION: Shoulder pain. COMPARISON PLAIN FILMS: 12/16/2024. COMPARISON CROSS-SECTIONAL IMAGING STUDIES: None available at time of interpretation. TECHNICAL: Axial, sagittal oblique and coronal oblique T1, PD, PD FS and T2-weighted images. Shoulder surface coil. FINDINGS: ROTATOR CUFF TENDONS AND MUSCLES AND DELTOID: Supraspinatus: No tendinosis, tendon tearing, muscle atrophy or muscle edema. Infraspinatus: No tendinosis, tendon tearing, muscle atrophy or muscle edema. Subscapularis: No tendinosis, tendon tearing, muscle atrophy or muscle edema. Teres Minor: No tendinosis, tendon tearing, muscle atrophy or muscle edema. Deltoid: No muscle atrophy or edema. BURSA: Subacromial-subdeltoid: No abnormal bursal edema, thickening or bursal fluid. BICEPS TENDON, LONG HEAD: The long head of the biceps tendon is appropriately positioned within the bicipital groove without tendon subluxation or dislocation. The biceps best mechanism is intact. The biceps anchor appears grossly intact. There is no significant tendinosis or tendon tearing. CORACOACROMIAL ARCH: Acromial Morphology: Type 1 acromial morphology. No abnormal lateral or anterior downward sloping of the acromion. No significant subacromial spur. No os acromiale. Acromiohumeral Interval: Normal. Coracohumeral Interval: Normal. ACROMIOCLAVICULAR JOINT REGION: AC Joint: No significant arthrosis, inferior hypertrophy, joint space widening, findings of acute injury or AC joint capsulitis. Ligaments: The coracoclavicular ligaments are intact. GLENOHUMERAL JOINT: Joint space: No effusion or synovitis. Humeral Head Articular Cartilage: No focal cartilage defect or underlying subchondral marrow changes. Glenoid Articular Cartilage: No focal cartilage defect or underlying subchondral marrow changes. Labrum: No labral tear or paralabral cyst. Alignment: Maintained. Capsule: No capsular edema or abnormal capsular thickening. OSSEOUS STRUCTURES: No fracture, marrow edema or marrow replacement process. OTHER FINDINGS: There is no abnormality within the suprascapular or spinoglenoid notches nor within the quadrilateral space. No axillary adenopathy or mass. IMPRESSION: 1. Unremarkable MRI of the left shoulder. Dictated by Roger Crews MD @ 12/22/2024 8:32:46 AM (Electronically Signed)
== END 2024-12-21 06:59 | disposition home or self-care (01) ==
LOC: MRI 06:58
PROVIDERS: PCP Nurse Practitioner Family; Visit Provider Nurse Practitioner Family
DX: M25.512 Pain in left shoulder (principal)
CPT/HCPCS: 73221

== ENCOUNTER 2025-03-07 16:54 | Outpatient (CLI) | payer OTHER, SELFPAY | END 2025-03-07 16:55 | disposition home or self-care (01) | PROVIDERS: PCP Nurse Practitioner Family; Visit Provider Nurse Practitioner Family | DX: Z01.818 Encounter for other preprocedural examination (principal) | CPT/HCPCS: 80048; 85025 ==

== ENCOUNTER 2025-04-07 08:54 | Outpatient (CLI) | payer OTHER, SELFPAY ==
--- NOTE | 2025-04-07 09:15 | CRLHL7_ITS ---
For Patients: As a result of the Century Cures Act, medical imaging exams and procedure reports are released immediately into your electronic medical record. You may view this report before your referring provider. If you have questions, please contact your health care provider. Indication: Unspecified subluxation of left shoulder joint Comparison: 12/29/2024 Procedure : Informed consent was obtained. The site was marked. Time-out was performed. The skin of the left shoulder was cleansed with ChloraPrep. A sterile drape was placed. 8 cc of 1 percent lidocaine was administered for superficial anesthesia. Subsequently a 22 gauge spinal needle was introduced into the left shoulder joint under intermittent fluoroscopic guidance. Injection of 2 cc nonionic Omnipaque 240 contrast confirmed intra-articular location. Subsequently 11 cc of dilute gadolinium were injected. The needle was removed and hemostasis achieved with direct pressure. A dressing was placed. The patient tolerated the procedure well without immediate complication and was immediately sent to MRI for imaging. Total fluoroscopy time 20 seconds. Impression: Successful fluoroscopically guided left shoulder arthrogram for MRI. Dictated by Brandon Rick MD @ 04/07/2025 10:23:45 AM (Electronically Signed)
--- NOTE | 2025-04-07 10:15 | CRLHL7_ITS ---
For Patients: As a result of the Century Cures Act, medical imaging exams and procedure reports are released immediately into your electronic medical record. You may view this report before your referring provider. If you have questions, please contact your health care provider. EXAM: MRI LEFT SHOULDER, ARTHROGRAM CLINICAL INDICATION: Shoulder subluxation. COMPARISON PLAIN FILMS: 12/16/2024. COMPARISON CROSS-SECTIONAL IMAGING STUDIES: 12/21/2024 conventional MR shoulder. TECHNICAL: Axial, sagittal oblique and coronal oblique T1, PD, PD FS and T2-weighted images following intra-articular injection of dilute gadolinium contrast. Shoulder surface coil. FINDINGS: ROTATOR CUFF TENDONS AND MUSCLES AND DELTOID: Supraspinatus: No tendinosis, tendon tearing, muscle atrophy or muscle edema. Infraspinatus: No tendinosis, tendon tearing, muscle atrophy or muscle edema. Subscapularis: No tendinosis, tendon tearing, muscle atrophy or muscle edema. Teres Minor: No tendinosis, tendon tearing, muscle atrophy or muscle edema. Deltoid: No muscle atrophy or edema. - BURSA: Subacromial-subdeltoid: No intra-articular contrast in the bursa. No bursal edema, thickening or bursal fluid. - BICEPS TENDON, LONG HEAD: The long head of the biceps tendon is appropriately positioned within the bicipital groove without tendon subluxation or dislocation. The biceps best mechanism is intact. The biceps anchor appears grossly intact. There is no significant tendinosis or tendon tearing. - CORACOACROMIAL ARCH: Acromial Morphology: Type 1 acromial morphology. No abnormal lateral or anterior downward sloping of the acromion. No significant subacromial spur. No os acromiale. Acromiohumeral Interval: Normal. Coracohumeral Interval: Normal. - ACROMIOCLAVICULAR JOINT REGION: AC Joint: No significant arthrosis, inferior hypertrophy, joint space widening, findings of acute injury or AC joint capsulitis. Ligaments: The coracoclavicular ligaments are intact. - GLENOHUMERAL JOINT: Joint space: No loose body or synovitis. Humeral Head Articular Cartilage: No focal cartilage defect or underlying subchondral marrow changes. Glenoid Articular Cartilage: No focal cartilage defect or underlying subchondral marrow changes. Labrum: No labral tear or paralabral cyst. Alignment: Maintained. Capsule: No capsular edema or abnormal capsular thickening. - OSSEOUS STRUCTURES: No fracture, marrow edema or marrow replacement process. - OTHER FINDINGS: There is no abnormality within the suprascapular or spinoglenoid notches nor within the quadrilateral space. No axillary adenopathy or mass. IMPRESSION: 1. Unremarkable left shoulder MR arthrogram. Dictated by Roger Crews MD @ 04/07/2025 12:38:45 PM (Electronically Signed)
== END 2025-04-07 08:55 | disposition home or self-care (01) ==
LOC: RAD 08:54
PROVIDERS: PCP Nurse Practitioner Family; Visit Provider Nurse Practitioner Family
DX: S43.002A Unspecified subluxation of left shoulder joint, initial encounter (principal); M75.102 Unspecified rotator cuff tear or rupture of left shoulder, not specified as traumatic
CPT/HCPCS: 23350; 73222; 77002; A9575; Q9966